=== PATIENT | male | born 1955 | race Hispanic/Latino ===

== ENCOUNTER 2018-01-11 10:01 | Emergency (ER) | payer OTHER, MEDICARE ==
[2018-01-11 10:18] VITALS: BP 128/75
[2018-01-11 10:49] LABS: Amphetamine Screen,Urine PRESUMPTIVE NEGATIVE; Benzodiazepines Screen,Urine PRESUMPTIVE NEGATIVE; Cannabinoid Screen,Urine PRESUMPTIVE NEGATIVE; Cocaine Screen,Urine PRESUMPTIVE NEGATIVE; Methadone Screen,Urine PRESUMPTIVE NEGATIVE; Opiate Screen,Urine PRESUMPTIVE NEGATIVE
[2018-01-11 12:57] LABS: Basophils % (Auto) 0.3 % (0.0-1.8); Eosinophils # (Auto) 0.1 K/mm3 (0.0-0.4); Eosinophils % (Auto) 0.7 % (0.0-4.3); Hematocrit 41.8 % (35.5-45.6); Hemoglobin 14.1 gm/dl (11.8-15.2); Lymphocytes # (Auto) 0.8 K/mm3 (1.2-5.4); Lymphocytes % (Auto) 6.6 % (13.4-35.0); Mean Corpuscular HGB Conc 34 % (32-34); Mean Corpuscular Hemoglobin 32 pg (28-32); Mean Corpuscular Volume 95 fl (84-94); Monocytes # (Auto) 0.6 K/mm3 (0.0-0.8); Monocytes % (Auto) 4.6 % (0.0-7.3); Platelet Count 179 K/mm3 (140-440); Red Blood Count 4.43 M/mm3 (3.65-5.03); Red Cell Distribution Width 13.9 % (13.2-15.2)
[2018-01-11 13:23] LABS: Alanine Aminotransferase 15 units/L (7-56); Albumin 4.2 g/dL (3.9-5); BUN/Creatinine Ratio 15; Blood Urea Nitrogen 15 mg/dL (9-20); Calcium 9.6 mg/dL (8.4-10.2); Hemolysis Index 8
--- NOTE | 2018-01-11 13:24 | Emergency Department Report ---
ED Dizziness HPI - General Chief Complaint: Dizziness Stated Complaint: DIZZINESS Time Seen by Provider: 01/11/18 11:43 Source: patient Mode of arrival: Ambulatory Limitations: No Limitations - Related Data Allergies Allergy/AdvReac Type Severity Reaction Status Date / Time haloperidol [From Haldol] Allergy Anaphylaxis Verified 01/11/18 10:18 diazepam [From Valium] AdvReac Unknown Verified 01/11/18 10:18 risperidone [From Risperdal] AdvReac Unknown Verified 01/11/18 10:18 ED Review of Systems ROS: Stated complaint: DIZZINESS Other details as noted in HPI ED Past Medical Hx - Past Medical History Hx Hypertension: Yes Additional medical history: Bi Polar - Surgical History Past Surgical History?: Yes Additional Surgical History: Testicle surgery 02/2017 - Social History Smoking Status: Current Every Day Smoker Substance Use Type: None ED Physical Exam - General Limitations: No Limitations ED Course Vital Signs 01/11/18 10:15 Temperature 97.9 F Pulse Rate 50 L Respiratory 16 Rate Blood Pressure 128/75 O2 Sat by Pulse 100 Oximetry ED Medical Decision Making - Lab Data Result diagrams: 01/11/18 12:36 01/11/18 12:36 Critical care attestation.: If time is entered above; I have spent that time in minutes in the direct care of this critically ill patient, excluding procedure time. ED Disposition Clinical Impression: Polypharmacy Disposition: DC-01 TO HOME OR SELFCARE Is pt being admited?: No Does the pt Need Aspirin: No Condition: Stable Additional Instructions: RETURN TO [facility] ASK STAFF TO CALL US FOR REPORT WE HAVE TRIED TO REACH THEM AND NO ANSWER Time of Disposition: 15:20
== END 2018-01-11 15:41 | disposition home or self-care (01) ==
LOC: ED 10:01
DX: T50.901A Poisoning by unspecified drugs, medicaments and biological substances, accidental (unintentional), initial encounter (principal); I10 Essential (primary) hypertension; F31.9 Bipolar disorder, unspecified; F17.200 Nicotine dependence, unspecified, uncomplicated; Z88.5 Allergy status to narcotic agent; Y92.89 Other specified places as the place of occurrence of the external cause
CPT/HCPCS: 36415; 80053; 80178; 80307; 84443; 85025; 93005; 93010; 99284

== ENCOUNTER 2018-01-12 13:00 | Emergency (ER) | payer OTHER, MEDICARE ==
[2018-01-12 13:28] VITALS: BP 123/66
--- NOTE | 2018-01-12 17:10 | Emergency Department Report ---
- General Chief complaint: Weakness Stated complaint: GENERAL ILLNESS Time Seen by Provider: 01/12/18 16:01 Source: patient, EMS Mode of arrival: Wheelchair Limitations: No Limitations - History of Present Illness MD Complaint: generalized weakness -: days(s) (2) Location: generalized Severity: moderate Quality: other (generalized weakness) Consistency: intermittent, now resolved Worsens with: medication Context: new medication Associated Symptoms: other (reports nausea). denies: chest pain, fever/chills, headaches, shortness of breath - Related Data Home Medications Medication Instructions Recorded Confirmed Last Taken Dapsone (Nf) 1 applic BID 01/13/18 01/13/18 Unknown Levothyroxine (Nf) 50 mcg PO DAILY 01/13/18 01/13/18 Unknown Metoprolol 25 mg PO BID 01/13/18 01/13/18 Unknown Vitamin D (Nf) 2,000 units PO DAILY 01/13/18 01/13/18 Unknown ZyPREXA 10 mg PO HS 01/13/18 01/13/18 Unknown Previous Rx's Medication Instructions Recorded Last Taken Type Aspirin EC [Aspirin Enteric Coated 81 mg PO DAILY tablet 01/14/18 Unknown Rx TAB] AtorvaSTATin [Lipitor] 20 mg PO QHS tablet 01/14/18 Unknown Rx Fenofibrate (Nf) 160 mg PO BID 01/14/18 Unknown Rx Levothyroxine [Synthroid] 50 mcg PO DAILY@0600 tablet 01/14/18 Unknown Rx [place] Carbonate ER [Lithobid ER] 600 mg PO BID tablet 01/14/18 Unknown Rx Nicotine [Habitrol] 21 mg TD QDAY patch 01/14/18 Unknown Rx OXcarbazepine [Trileptal] 300 mg PO TID tablet 01/14/18 Unknown Rx Paliperidone [Invega] 6 mg PO BID tablet 01/14/18 Unknown Rx Tamsulosin [Flomax] 0.4 mg PO HS capsule 01/14/18 Unknown Rx diphenhydrAMINE [Benadryl CAP] 25 mg PO HS capsule 01/14/18 Unknown Rx Allergies Allergy/AdvReac Type Severity Reaction Status Date / Time haloperidol [From Haldol] Allergy Anaphylaxis Verified 01/12/18 13:26 diazepam [From Valium] AdvReac Unknown Verified 01/12/18 13:26 risperidone [From Risperdal] AdvReac Unknown Verified 01/12/18 13:26 ED Review of Systems ROS: Stated complaint: GENERAL ILLNESS Other details as noted in HPI Comment: All other systems reviewed and negative Constitutional: denies: fever Respiratory: denies: shortness of breath Cardiovascular: denies: chest pain Gastrointestinal: nausea. denies: abdominal pain Neurological: other (reports dizziness). denies: headache ED Past Medical Hx - Past Medical History Hx Hypertension: Yes Additional medical history: Bi Polar - Surgical History Additional Surgical History: Testicle surgery 02/2017 - Social History Smoking Status: Current Every Day Smoker Substance Use Type: None - Medications Home Medications: Home Medications Medication Instructions Recorded Confirmed Last Taken Type Dapsone (Nf) 1 applic BID 01/13/18 01/13/18 Unknown History Levothyroxine (Nf) 50 mcg PO DAILY 01/13/18 01/13/18 Unknown History Metoprolol 25 mg PO BID 01/13/18 01/13/18 Unknown History Vitamin D (Nf) 2,000 units PO DAILY 01/13/18 01/13/18 Unknown History ZyPREXA 10 mg PO HS 01/13/18 01/13/18 Unknown History Aspirin EC [Aspirin Enteric Coated 81 mg PO DAILY tablet 01/14/18 Unknown Rx TAB] AtorvaSTATin [Lipitor] 20 mg PO QHS tablet 01/14/18 Unknown Rx Fenofibrate (Nf) 160 mg PO BID 01/14/18 Unknown Rx Levothyroxine [Synthroid] 50 mcg PO DAILY@0600 tablet 01/14/18 Unknown Rx [place] Carbonate ER [Lithobid ER] 600 mg PO BID tablet 01/14/18 Unknown Rx Nicotine [Habitrol] 21 mg TD QDAY patch 01/14/18 Unknown Rx OXcarbazepine [Trileptal] 300 mg PO TID tablet 01/14/18 Unknown Rx Paliperidone [Invega] 6 mg PO BID tablet 01/14/18 Unknown Rx Tamsulosin [Flomax] 0.4 mg PO HS capsule 01/14/18 Unknown Rx diphenhydrAMINE [Benadryl CAP] 25 mg PO HS capsule 01/14/18 Unknown Rx ED Physical Exam - General Limitations: No Limitations General appearance: alert, in no apparent distress - Head Head exam: Present: atraumatic, normocephalic - Eye Eye exam: Present: normal appearance - ENT ENT exam: Present: mucous membranes moist - Neck Neck exam: Present: normal inspection - Respiratory Respiratory exam: Present: normal lung sounds bilaterally. Absent: respiratory distress - Cardiovascular Cardiovascular Exam: Present: normal rhythm, bradycardia - GI/Abdominal GI/Abdominal exam: Present: soft. Absent: tenderness - Extremities Exam Extremities exam: Present: normal inspection - Neurological Exam Neurological exam: Present: alert, oriented X3, other (pt has a bit of a shuffling gait, but able to walk around room unassisted) - Psychiatric Psychiatric exam: Present: normal affect, normal mood - Skin Skin exam: Present: warm, dry, intact, normal color. Absent: rash ED Course Vital Signs 01/12/18 13:26 Temperature 97.5 F L Pulse Rate 51 L Respiratory 18 Rate Blood Pressure 123/66 O2 Sat by Pulse 100 Oximetry ED Medical Decision Making - Medical Decision Making 60-year-old male patient reports nausea, generalized weakness, dizziness since yesterday. Was seen yesterday in ER had labs done which were negative. States his doctor advised him to take his psych meds at night instead of in the morning. Patient returned today with same complaints of generalized weakness. Patient states while sitting and the waiting room his symptoms have since improved. is also with patient and agrees. Patient now able to get up out of wheelchair and walk around unassisted, which patient states he was not able to do earlier this morning. Patient also reported that he has not eaten today, so he requests a peanut butter sandwich and cranberry juice. After this , patient is feeling much better, wants to be discharged home. Critical care attestation.: If time is entered above; I have spent that time in minutes in the direct care of this critically ill patient, excluding procedure time. ED Disposition Clinical Impression: Generalized weakness Disposition: DC-01 TO HOME OR SELFCARE Is pt being admited?: No Condition: Stable Instructions: Weakness (ED) Referrals: PRIMARY CARE, [Primary Care Provider] - 3-5 Days Time of Disposition: 17:09
== END 2018-01-12 17:32 | disposition home or self-care (01) ==
LOC: ED 13:00
DX: R53.1 Weakness (principal); R11.0 Nausea; F17.200 Nicotine dependence, unspecified, uncomplicated; F31.9 Bipolar disorder, unspecified; I10 Essential (primary) hypertension; Z88.4 Allergy status to anesthetic agent; Z88.5 Allergy status to narcotic agent
CPT/HCPCS: 99283

== ENCOUNTER 2018-01-13 15:04 | Observation (INO) | payer OTHER, MEDICARE ==
--- NOTE | 2018-01-13 16:23 | Emergency Department Report ---
Silvina Doc - Documentation Documentation: She is a 62-year-old gentleman who is presenting with dizziness and frequent falls. This is the patient's third day in emergency department for the same symptoms. Patient is a resident at [facility]. Patient states he's been on all of the medications he is on currently but not in this combination. Patient states approximate hour after taking his meds he feels very dizzy has fallen numerous times. Patient feels off balance. Patient also started feeling some nausea this morning with these symptoms. Patient just feels generally weak. Initially this was thought to be secondary to the patient's medications however the patient states today that he's had 3 days of constant double vision. Patient states although the dizziness and falls start approximate hour after taking his meds in the morning is not until he tries to get up and start moving around that the patient feels bad. Patient states he starts feeling better towards the evening time but the symptoms do return the next morning. Patient to be sent to the [facility] for stroke workup. Patient's had labs done over the last several days that were within normal limits CT head has not been done an evaluation of the posterior vessels have not been done. Patient's symptoms have been waxing and waning and the patient could be having TIAs from a posterior occlusion.
[2018-01-13 16:42] LABS: Basophils % (Auto) 0.4 % (0.0-1.8); Eosinophils # (Auto) 0.1 K/mm3 (0.0-0.4); Eosinophils % (Auto) 1.6 % (0.0-4.3); Hematocrit 41.1 % (35.5-45.6); Hemoglobin 13.8 gm/dl (11.8-15.2); Lymphocytes % (Auto) 11.5 % (13.4-35.0); Mean Corpuscular HGB Conc 34 % (32-34); Mean Corpuscular Hemoglobin 32 pg (28-32); Mean Corpuscular Volume 95 fl (84-94); Monocytes # (Auto) 0.7 K/mm3 (0.0-0.8); Monocytes % (Auto) 7.7 % (0.0-7.3); Platelet Count 164 K/mm3 (140-440); Red Blood Count 4.32 M/mm3 (3.65-5.03); Red Cell Distribution Width 13.9 % (13.2-15.2)
[2018-01-13 16:53] LABS: INR 0.99 (0.87-1.13)
[2018-01-13 16:54] LABS: BUN/Creatinine Ratio 13; Blood Urea Nitrogen 14 mg/dL (9-20); Calcium 10.1 mg/dL (8.4-10.2); Hemolysis Index 14; Partial Thromboplastin Time 25.6 Sec. (24.2-36.6); Thrombin Time 16.6 Sec. (15.1-19.6)
--- NOTE | 2018-01-13 17:18 | Cat Scan Report ---
FINAL REPORT EXAM: CT HEAD/BRAIN WO CON HISTORY: Stroke symptoms TECHNIQUE: 2.5 millimeter axial images from the skullbase to the vertex. Comparison: None FINDINGS: There is no evidence of an acute intracranial process, intracranial hemorrhage or mass effect. The ventricles are normal size. The visualized portions of the orbits, paranasal and mastoid sinuses are unremarkable. The bony structures are unremarkable in appearance. IMPRESSION: 1. No evidence of an acute intracranial process, intracranial hemorrhage or mass effect. If there is a clinical suspicion of acute cerebral ischemia, MRI brain may be helpful for further evaluation.
--- NOTE | 2018-01-13 18:12 | Emergency Department Report ---
- General Chief complaint: Fall Stated complaint: FALLING INJURY Time Seen by Provider: 01/13/18 16:07 Source: patient Mode of arrival: Wheelchair Limitations: No Limitations - History of Present Illness Initial comments: 6-year-old male that presents emergency room with complaints of a fall. Patient states she has been falling multiple times per day over the last 3 days. Patient states today he leaned forward and fell and hit his head causing an abrasion to his forehead. Patient denies headache or pain to his head. Patient denies loss of consciousness. Patient states his only complaints are that he is feeling weak, dizzy and double vision and nausea/vomiting. Patient states the symptoms have been going on for the same amount of time and even falling for 3 days. Patient denies chest pain shortness of breath. Patient denies fever or chills. She is currently a resident at [facility]. MD Complaint: generalized weakness -: Sudden Location: generalized Severity: severe Consistency: constant Improves with: rest Worsens with: movement, exertion Context: new medication Associated Symptoms: nausea/vomiting. denies: chest pain, confusion, dark stools, diaphoresis, dysuria, easy bruising, fever/chills, headaches, loss of appetite, myalgias, rash, shortness of breath, syncope - Related Data Home Medications Medication Instructions Recorded Confirmed Last Taken Aspir-Low 81 mg PO DAILY 01/13/18 01/13/18 Unknown Benadryl CAP 25 mg .ROUTE HS 01/13/18 01/13/18 Unknown Dapsone (Nf) 1 applic BID 01/13/18 01/13/18 Unknown Fenofibrate (Nf) 160 mg PO BID 01/13/18 01/13/18 Unknown Invega (Nf) 6 mg PO BID 01/13/18 01/13/18 Unknown Levothyroxine (Nf) 50 mcg PO DAILY 01/13/18 01/13/18 Unknown Lithobid 600 mg PO BID 01/13/18 01/13/18 Unknown Metoprolol 25 mg PO BID 01/13/18 01/13/18 Unknown Rosuvastatin (Nf) 10 mg PO HS 01/13/18 01/13/18 Unknown Tamsulosin 0.4 mg PO HS 01/13/18 01/13/18 Unknown Trileptal 600 mg PO BID 01/13/18 01/13/18 Unknown Vitamin D (Nf) 2,000 units PO DAILY 01/13/18 01/13/18 Unknown ZyPREXA 10 mg PO HS 01/13/18 01/13/18 Unknown Allergies Allergy/AdvReac Type Severity Reaction Status Date / Time haloperidol [From Haldol] Allergy Anaphylaxis Verified 01/12/18 13:26 diazepam [From Valium] AdvReac Unknown Verified 01/12/18 13:26 risperidone [From Risperdal] AdvReac Unknown Verified 01/12/18 13:26 ED Review of Systems ROS: Stated complaint: FALLING INJURY Other details as noted in HPI Constitutional: weakness. denies: chills, fever Eyes: denies: eye pain, eye discharge, vision change ENT: denies: ear pain, throat pain Respiratory: denies: cough, shortness of breath, wheezing Cardiovascular: denies: chest pain, palpitations Endocrine: no symptoms reported Gastrointestinal: denies: abdominal pain, nausea, diarrhea Genitourinary: denies: urgency, dysuria Musculoskeletal: denies: back pain, joint swelling, arthralgia Skin: denies: rash, lesions Neurological: weakness, vertigo. denies: headache, paresthesias Psychiatric: denies: anxiety, depression Hematological/Lymphatic: denies: easy bleeding, easy bruising ED Past Medical Hx - Past Medical History Previous Medical History?: Yes Hx Hypertension: Yes Hx Psychiatric Treatment: Yes (Bipolar) Additional medical history: Bi Polar - Surgical History Past Surgical History?: Yes Additional Surgical History: Testicle surgery 02/2017 - Family History Family history: hypertension - Social History Smoking Status: Current Every Day Smoker Substance Use Type: None - Medications Home Medications: Home Medications Medication Instructions Recorded Confirmed Last Taken Type Aspir-Low 81 mg PO DAILY 01/13/18 01/13/18 Unknown History Benadryl CAP 25 mg .ROUTE HS 01/13/18 01/13/18 Unknown History Dapsone (Nf) 1 applic BID 01/13/18 01/13/18 Unknown History Fenofibrate (Nf) 160 mg PO BID 01/13/18 01/13/18 Unknown History Invega (Nf) 6 mg PO BID 01/13/18 01/13/18 Unknown History Levothyroxine (Nf) 50 mcg PO DAILY 01/13/18 01/13/18 Unknown History Lithobid 600 mg PO BID 01/13/18 01/13/18 Unknown History Metoprolol 25 mg PO BID 01/13/18 01/13/18 Unknown History Rosuvastatin (Nf) 10 mg PO HS 01/13/18 01/13/18 Unknown History Tamsulosin 0.4 mg PO HS 01/13/18 01/13/18 Unknown History Trileptal 600 mg PO BID 01/13/18 01/13/18 Unknown History Vitamin D (Nf) 2,000 units PO DAILY 01/13/18 01/13/18 Unknown History ZyPREXA 10 mg PO HS 01/13/18 01/13/18 Unknown History ED Physical Exam - General Limitations: No Limitations General appearance: alert, in no apparent distress - Head Head exam: Present: atraumatic, normocephalic - Eye Eye exam: Present: normal appearance - ENT ENT exam: Present: mucous membranes moist - Neck Neck exam: Present: normal inspection - Respiratory Respiratory exam: Present: normal lung sounds bilaterally. Absent: respiratory distress - Cardiovascular Cardiovascular Exam: Present: regular rate, normal rhythm. Absent: systolic murmur, diastolic murmur, rubs, gallop - GI/Abdominal GI/Abdominal exam: Present: soft, normal bowel sounds - Rectal Rectal exam: Present: deferred - Extremities Exam Extremities exam: Present: normal inspection - Back Exam Back exam: Present: normal inspection - Neurological Exam Neurological exam: Present: alert, oriented X3 - Psychiatric Psychiatric exam: Present: normal affect, normal mood - Skin Skin exam: Present: warm, dry, normal color, abrasion (forehead). Absent: rash - Assessment Assessment Interval: Baseline - Level of Consciousness 1a. Level of Consciousness: alert/keenly responsive - LOC Questions 1b. LOC Questions: answers both correctly - LOC Command 1c. LOC Commands: performs tasks correctly - Best Gaze 2. Best Gaze: normal - Visual 3. Visual: no visual loss - Facial Palsy 4. Facial Palsy: normal symmetrical movement - Motor Arm 5b. Motor Arm Right: no drift 5a. Motor Arm Left: no drift - Motor Leg 6a. Motor Leg Left: no drift 6b. Motor Leg Right: no drift - Limb Ataxia 7. Limb Ataxia: absent - Sensory 8. Sensory: normal - Best Language 9. Best Language: no aphasia - Dysarthria 10. Dysarthria: normal - Extinction and Inattention 11. Extinction/Inattention: no abnormality - Scoring Total Score: 0 Stroke Severity: No Stroke Symptoms ED Course Vital Signs 01/13/18 01/13/18 01/13/18 15:12 16:28 16:30 Temperature 98 F 98.4 F Pulse Rate 58 L 90 Respiratory 18 20 20 Rate Blood Pressure 171/69 Blood Pressure 165/88 [Left] O2 Sat by Pulse 99 Oximetry 01/13/18 01/13/18 01/13/18 19:16 19:30 19:46 Temperature Pulse Rate 55 L 56 L 55 L Respiratory 16 13 16 Rate Blood Pressure 155/80 155/80 Blood Pressure [Left] O2 Sat by Pulse 99 100 100 Oximetry 01/13/18 01/13/18 01/13/18 20:00 20:26 20:30 Temperature Pulse Rate Respiratory Rate Blood Pressure 155/80 155/80 155/80 Blood Pressure [Left] O2 Sat by Pulse 82 L Oximetry - Reevaluation(s) Reevaluation #1: Scars plan of care with patient. Discussed all results with patient. Patient to be admitted to the hospitalist service. 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 Based on the findings on the CTA, Dr. Bautista recommends outpatient follow-up with neurosurgery. 01/13/18 21:53 I will consult our hospitalist for admission. 01/13/18 21:54 Hospitalist was consulted for admission. Hospitalist to admit and assume care of patient. 01/13/18 21:58 ED Medical Decision Making - Lab Data Result diagrams: 01/13/18 16:33 01/13/18 16:33 - EKG Data -: EKG Interpreted by [facility] EKG shows normal: sinus rhythm, intervals, QRS complexes, ST-T waves Rate: bradycardia - EKG Data Interpretation: other (axis deviation) - Radiology Data Radiology results: report reviewed FINAL REPORT EXAM: CT ANGIO HEAD HISTORY: stroke sx, do if CT head negative TECHNIQUE: Following IV administration of 100 cc of Omnipaque 350 axial helical imaging was performed through the brain with sagittal and coronal reformatted images and maximum intensity projection images obtained. Comparison: CT angiogram neck also performed today FINDINGS: There is mild aneurysmal dilatation (5.3 millimeters) of the distal left vertebral artery. This is compared with the more normal caliber of the more proximal vessel of 3.5 millimeters and of the more distal vessel of 3.6 millimeters. There is no other evidence of intracranial aneurysm, no evidence of occlusion and no definite evidence of hemodynamically significant stenosis of the major intracranial arteries. There is normal enhancement of the major intracranial venous structures. IMPRESSION: 1. 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 2. Otherwise unremarkable CT angiogram brain. Transcribed By: ED Dictated By: CECE MONTERO MD Electronically Authenticated By: CECE MONTERO MD Signed Date/Time: 01/13/182120 \ FINAL REPORT EXAM: CT ANGIO NECK HISTORY: stroke sx, do if CT head negative TECHNIQUE: Following IV administration of 100 cc of Omnipaque 350 axial helical imaging was performed through the neck with sagittal and coronal reformatted images and maximum intensity projection images obtained. Comparison: CT angiogram brain also performed today FINDINGS: There is normal enhancement of the major cervical arteries without evidence of occlusion, stenosis, dissection or aneurysm. The left vertebral artery is dominant. There is normal enhancement of the major cervical venous structures. 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 The bony structures are notable for cervical spondylosis with multiple level canal and foraminal stenosis. The visualized portions of the orbits, paranasal and mastoid sinuses are unremarkable. IMPRESSION: 1. No evidence of occlusion, stenosis, dissection or aneurysm of the major cervical arteries. 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 3. Cervical spondylosis with multiple level canal and foraminal stenosis. Transcribed By: ED Dictated By: CECE MONTERO MD Electronically Authenticated By: CECE MONTERO MD Signed Date/Time: 01/13/182115 FINAL REPORT EXAM: CT HEAD/BRAIN WO CON HISTORY: Stroke symptoms TECHNIQUE: 2.5 millimeter axial images from the skullbase to the vertex. Comparison: None FINDINGS: There is no evidence of an acute intracranial process, intracranial hemorrhage or mass effect. The ventricles are normal size. The visualized portions of the orbits, paranasal and mastoid sinuses are unremarkable. The bony structures are unremarkable in appearance. IMPRESSION: 1. No evidence of an acute intracranial process, intracranial hemorrhage or mass effect. If there is a clinical suspicion of acute cerebral ischemia, MRI brain may be helpful for further evaluation. Transcribed By: ED Dictated By: CECE MONTERO MD Electronically Authenticated By: CECE MONTERO MD Signed Date/Time: 01/13/18 2087 - Medical Decision Making Patient is 62-year-old gentleman presents to emergency room with complaints of dizziness, weakness and multiple falls and no nausea vomiting. Patient had a cardiac and neurovascular workup. Patient's CTA of the neck was negative. Sensations plain CT of the head was negative. 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 [facility] [place] [facility] was consulted and recommends outpatient monitoring. Patient will be admitted to the hospitalist service for further violation treatment. Patient admitted to try to figure out why the patient is so dizzy, weak and had multiple falls in the last 3 days. - Differential Diagnosis med reaction. Dizzy. Weakness. Nausea vomiting. double vision Critical care attestation.: If time is entered above; I have spent that time in minutes in the direct care of this critically ill patient, excluding procedure time. ED Disposition Clinical Impression: Dizziness, Weakness, Multiple falls, Double vision, Vertebral artery aneurysm Head injury Qualifiers: Encounter type: initial encounter Qualified Code(s): S09.90XA - Unspecified injury of head, initial encounter Forehead abrasion Qualifiers: Encounter type: initial encounter Qualified Code(s): S00.81XA - Abrasion of other part of head, initial encounter Disposition: DC-09 OP ADMIT IP TO THIS HOSP Is pt being admited?: Yes Does the pt Need Aspirin: No Condition: Serious Time of Disposition: 22:01
--- NOTE | 2018-01-13 21:16 | Cat Scan Report ---
FINAL REPORT EXAM: CT ANGIO NECK HISTORY: stroke sx, do if CT head negative TECHNIQUE: Following IV administration of 100 cc of Omnipaque 350 axial helical imaging was performed through the neck with sagittal and coronal reformatted images and maximum intensity projection images obtained. Comparison: CT angiogram brain also performed today FINDINGS: There is normal enhancement of the major cervical arteries without evidence of occlusion, stenosis, dissection or aneurysm. The left vertebral artery is dominant. There is normal enhancement of the major cervical venous structures. 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 The bony structures are notable for cervical spondylosis with multiple level canal and foraminal stenosis. The visualized portions of the orbits, paranasal and mastoid sinuses are unremarkable. IMPRESSION: 1. No evidence of occlusion, stenosis, dissection or aneurysm of the major cervical arteries. 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 3. Cervical spondylosis with multiple level canal and foraminal stenosis.
--- NOTE | 2018-01-13 21:21 | Cat Scan Report ---
FINAL REPORT EXAM: CT ANGIO HEAD HISTORY: stroke sx, do if CT head negative TECHNIQUE: Following IV administration of 100 cc of Omnipaque 350 axial helical imaging was performed through the brain with sagittal and coronal reformatted images and maximum intensity projection images obtained. Comparison: CT angiogram neck also performed today FINDINGS: There is mild aneurysmal dilatation (5.3 millimeters) of the distal left vertebral artery. This is compared with the more normal caliber of the more proximal vessel of 3.5 millimeters and of the more distal vessel of 3.6 millimeters. There is no other evidence of intracranial aneurysm, no evidence of occlusion and no definite evidence of hemodynamically significant stenosis of the major intracranial arteries. There is normal enhancement of the major intracranial venous structures. IMPRESSION: 1. 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 2. Otherwise unremarkable CT angiogram brain.
[2018-01-13] MEDS ORDERED: ZOFRAN IV PRN (22:41)
[2018-01-13] MEDS ORDERED: TYLENOL PO PRN (22:42)
--- NOTE | 2018-01-14 04:23 | History and Physical Report ---
CHIEF COMPLAINT: Frequent fall. Other complaint include dizziness. HISTORY OF PRESENT ILLNESS: The patient is a 62-year-old male who said he has been falling frequently and has been feeling dizzy and also the patient complained of blurry vision and weakness in the lower extremity with nausea and vomiting. There was no history of chest pain. No history of shortness of breath and no history of fever; however, the patient complained about some shaking sensation in both upper extremities and presented for evaluation. PAST MEDICAL HISTORY: Pertinent for hypertension, bipolar disorder. PAST SURGICAL HISTORY: Pertinent for testicular surgery. FAMILY HISTORY: Pertinent for hypertension. SOCIAL HISTORY: The patient smokes cigarettes, does not drink alcohol and does not use illicit drugs. MEDICATIONS: The patient is on aspirin 81 mg daily, Benadryl capsules 25 mg, Dapsone one application b.i.d., fenofibrate 160 mg by mouth twice daily, Invega 6 mg by mouth twice daily, levothyroxine 50 mcg by mouth daily, Lithobid 600 mg b.i.d., metoprolol 25 mg by mouth b.i.d., Crestor 10 mg by mouth at bedtime, tamsulosin 0.4 mg at bedtime, Trileptal 600 mg by mouth twice daily, vitamin D 2000 units by mouth daily, Zyprexa 10 mg by mouth at bedtime. ALLERGIES: THE PATIENT IS ALLERGIC TO HALOPERIDOL, DIAZEPAM, RISPERIDONE. REVIEW OF SYSTEMS: CONSTITUTIONAL: There is no fever, no chills, no diaphoresis. HEENT: There is no headache or sore throat. CARDIOVASCULAR: There is no chest pain or orthopnea. RESPIRATORY SYSTEM: There is no shortness of breath or cough. GASTROINTESTINAL: There is nausea and vomiting with no abdominal pain, no diarrhea or constipation. NEUROLOGICAL SYSTEM: There is weakness of the lower extremities, dizziness, blurry vision and frequent fall. MUSCULOSKELETAL: There is no joint pain or swelling. DERMATOLOGICAL: There is no skin rash or itching. GENITOURINARY: There is no dysuria, hematuria, or flank pain. Rest of system review is normal. PHYSICAL EXAMINATION: GENERAL: At the time of exam, the patient was found to be alert, oriented x 3, and not in acute distress. VITAL SIGNS: At the initial time of presentation shows temperature of 98 degrees Fahrenheit, pulse of 58, respirations 18, blood pressure 171/69, O2 sat of 99% on room air. HEENT: Showed pupils to be equal, round, reactive to light and accommodating. Extraocular muscles are intact. NECK: Supple with no JVD or carotid bruit. CARDIOVASCULAR: Showed normal first and second heart sounds with no gallops or murmurs. RESPIRATORY SYSTEM: Show good air entry on both sides of the lungs with no abnormal breath sounds. GASTROINTESTINAL SYSTEM: Show abdomen to be full, soft, nontender with no organomegaly or rigidity. NEUROLOGICAL: Shows no focal deficit. MUSCULOSKELETAL SYSTEM: Show no joint swelling or tenderness. DERMATOLOGICAL SYSTEM: Show no skin rash. GENITOURINARY: Showing no costovertebral angle tenderness. PERTINENT LABORATORY DATA AND IMAGING STUDIES: The patient has CT of the head and brain without contrast done that shows no evidence of an acute intracranial process or any evidence of hemorrhage or mass effect and the patient also had CT angiogram of the head done and CT angiogram of the head shows mild aneurysmal dilatation of about 5.3 mm in the distal left vertebral artery. The patient also had CT angiogram of the neck done and this shows no evidence of occlusion, stenosis, dissection or aneurysm of the major cervical arteries. 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 LABORATORY IMAGING STUDIES: The patient has CBC done with normal white count, normal hemoglobin and normal hematocrit with CBC differential showing elevated monocyte count of 7.7% and elevated segmented neutrophil of 78.8%. The patient's chemistry was unremarkable. Toxicology showed unremarkable alcohol level. DIAGNOSES: 1. Dizziness. 2. Weakness. 3. Frequent fall. PLAN: 1. The patient will be admitted to medical floor on telemetry. 2. The patient will have MRI of the brain without contrast done in the morning. 3. The patient will have Neurology consult with Dr. Cem Quintero this morning and will have physical therapy consult because of weakness of the lower extremity and frequent fall. 4. The patient will be on p.r.n. medications like Tylenol 650 mg by mouth every 4 hours for fever, headache and will also be on IV Zofran 4 mg every 8 hours for nausea and vomiting. 5. The patient will be on his home medication as shown in the medication reconciliation section. 6. The patient will have bilateral carotid Doppler done in the morning and will be on oxygen by nasal cannula at 2 liter per minute. [facility]# [id number] OCN/LIS
[2018-01-14] MEDS: HABITROL TD SCH ×2 (04:42→12:58)
[2018-01-14] MEDS ORDERED: SYNTHROID PO SCH (06:00)
[2018-01-14] MEDS ORDERED: HABITROL TD SCH (10:00)
[2018-01-14] MEDS ORDERED: FENOFIBRATE 160 MG PO SCH (10:00)
[2018-01-14] MEDS ORDERED: LITHOBID ER PO SCH (10:00)
[2018-01-14] MEDS ORDERED: TRILEPTAL PO SCH ×3 (10:00→20:00)
[2018-01-14] MEDS ORDERED: LOPRESSOR PO SCH (10:00)
[2018-01-14] MEDS ORDERED: HALFPRIN EC PO SCH (10:00)
[2018-01-14] MEDS ORDERED: VITAMIN D3 PO SCH (10:00)
[2018-01-14] MEDS ORDERED: INVEGA PO SCH (10:00)
--- NOTE | 2018-01-14 12:15 | Magnetic Resonance Report ---
MRI BRAIN WITHOUT CONTRAST: 01/13/18 22:30:00 CLINICAL: Dizziness and frequent falls. Blurry vision. TECHNIQUE: Axial diffusion, T1, T2, gradient echo T2*, coronal and axial FLAIR and sagittal T1 sequences on a 1.5 Janiya magnet. FINDINGS: The ventricles and sulci are enlarged for age. No restricted diffusion. No abnormal signal. No mass or mass effect. No hemorrhage, edema or extra-axial collection. Normal pituitary and optic chiasm. The brainstem and cerebellum are normal. Intact vascular flow voids. Normal sinuses. The orbits, and soft tissues are normal. Normal calvarium and skull base. IMPRESSION: Mild cortical atrophy and otherwise negative.
--- NOTE | 2018-01-14 16:31 | Event Note ---
Date: 01/14/18 Discharge summary dictated
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
[2018-01-14 18:21] VITALS: BP 139/72
[2018-01-14] MEDS ORDERED: FLOMAX PO SCH (22:00)
[2018-01-14] MEDS ORDERED: BENADRYL PO SCH (22:00)
--- NOTE | 2018-01-14 22:28 | Discharge Summary ---
HOSPITAL COURSE: The patient was admitted for dizziness and severe weakness and severe frequent falls. The patient had multiple imaging studies, which did not reveal anything. There is a mild aneurysmal dilatation of about 5.3 mm in the left vertebral artery. Neurology has evaluated the patient. Neurology feels that it is because of excessive oxcarbazepine and Zyprexa dosage. Oxcarbazepine was decreased to 300 mg 3 times a day from about 600 three times a day. Oxcarbazepine 300 mg 3 times a day and Zyprexa was reduced from 12.5 b.i.d. to 10 mg at bedtime and also Invega to continue at 6 mg twice a day. The patient able to walk later part of the day, hence being discharged. The patient also wants to go home. He feels he is more stronger and that he also attributes it to the excessive medication. DISCHARGE DIAGNOSES: 1. Ataxia secondary to increased dosage of oxcarbazepine and Zyprexa, which has resolved. The patient to get home physical therapy. Also, frequent falls secondary to weakness secondary to oral medication. Also, the patient has history of hypertension, bipolar disorder to continue the medications for that and follow up with his neurologist at [place]. Images of his brain MRI. 2. Head CTA and head CT attributed to be given on the disk. I will also be giving them the printed reports of brain MRI, neck CTA, head CT and neck CT. DISCHARGE DIAGNOSES: Ataxia, hypertension, bipolar disorder, medication overdose. JOB# [id number] MADISYN/LIS
== END 2018-01-14 18:15 | disposition home or self-care (01) ==
LOC: ED 15:04 → 3A 22:30 → INTOOBSV 22:30
PROVIDERS: ADMIT Internal Medicine; ATTEND Internal Medicine
DX: S00.81XA Abrasion of other part of head, initial encounter (principal); S09.90XA Unspecified injury of head, initial encounter; R53.1 Weakness; H53.2 Diplopia; R42 Dizziness and giddiness; I72.6 Aneurysm of vertebral artery; W18.30XA Fall on same level, unspecified, initial encounter; Y99.9 Unspecified external cause status; Y92.9 Unspecified place or not applicable; Y93.89 Activity, other specified
CPT/HCPCS: 36415; 70450; 70496; 70498; 70551; 80048; 80178; 82607; 82962; 84484; 85025; 85610; 85670; 85730; 93005; 93010; 93880; 97161; 99285; G0378; G0480; Q9967; 80320